=== PATIENT | female | born 1985 | race Caucasian/White ===

== ENCOUNTER → 2022-06-06 08:40 | Outpatient (CLI) | payer BC, SELFPAY ==
--- NOTE | ~2022-06-06 | CT_ITS ---
Non-contrast Head CT History: Lightheadedness Technique: Axial non-contrast imaging of the brain was performed. Dose reduction technique was used on this scan by utilizing automated exposure control and iterative reconstruction technique. The dose -length product (DLP) was 599.57 mGy-cm. Findings: There is no evidence of intracranial hemorrhage, mass lesion, or acute infarct. Brain par enchyma appears normal. The ventricles and subarachnoid spaces are normal in size. The calvarium ap pears normal. The visualized paranasal sinuses and mastoid air cells are clear. Impression: No significant abnormality seen. Reviewed, dictated and finalized at location . MITH APPRENTICE Impression: No significant abnormality seen.
== END ==
DX: R42 Dizziness and giddiness (principal); R51.9 Headache, unspecified; S09.90XA Unspecified injury of head, initial encounter; R55 Syncope and collapse
CPT/HCPCS: 70450

== ENCOUNTER 2023-08-23 18:57 | Emergency (ER) | payer BC, SELFPAY ==
--- NOTE | ~2023-08-23 | XR_ITS ---
EXAMINATION: XR finger 2nd RT min 2V DATE: 08/23/2023 19:12 INDICATION: Right hand second digit injury. TECHNIQUE: 3 views of right hand second digit were obtained. COMPARISON: None. FINDINGS: Bone alignment is normal. There is a chip fracture of tuft of second distal phalanx. Joint spaces are normal. IMPRESSION: 1. Chip fracture of tuft of second distal phalanx. Reviewed, dictated and finalized at location E.
--- NOTE | 2023-08-23 19:06 | ED.UPPEXIN ---
HPI - Extremity Injury (Upper) General Chief Complaint: Extremity Injury, Upper Stated Complaint: Injured Finger Time Seen by Provider: 08/23/23 19:04 Source: patient, RN notes reviewed and old records reviewed Mode of arrival: ambulatory Limitations: no limitations History of Present Illness HPI narrative: 38-year-old female presents to the [facility] after closing her 2nd finger right hand in a car door. MD complaint: injury to: right and finger (2nd) Treatments prior to arrival: other (Pressure dressing) Related Data Allergies Allergy/AdvReac Type Severity Reaction Status Date / Time No Known Allergies Allergy Verified 08/23/23 19:04 Review of Systems Review of Systems: All systems reviewed & are unremarkable except as noted in HPI and below Constitutional: Constitutional: Reports no additional constitutional complaints Eyes: Eyes: Reports no additional eye complaints ENT: Reports system reviewed and no additional complaints, except as documented Cardiovascular: Cardiovascular: Reports no additional cardiovascular complaints, Denies chest pain and Denies dyspnea Respiratory: Respiratory: Reports no additional respiratory complaints, Denies chest congestion, Denies cough and Denies dyspnea Gastrointestinal: Gastrointestinal: Reports no additional gastrointestinal complaints, Denies abdominal pain, Denies nausea and Denies vomiting Musculoskeletal: Musculoskeletal: Reports as per HPI Integumentary/Breasts: Skin/Breast: Reports system reviewed and no additional complaints, except as docu Neurologic: Reports system reviewed and no additional complaints, except as documented Psychiatric: Psychiatric: Reports no additional psychiatric complaints Allergic/Immunologic: Allergic/Immunologic: Reports no additional allergic/immunologic complaints PMFSH Past Medical History Medical History ASCUS of cervix with negative high risk HPV Surgical History Surgical History History of colposcopy late teens when it was done - all normal per pt -nm Hx of tonsillectomy Family History Family History Mother Hypertension Breast cancer Grandparent Diabetes mellitus Lung cancer Carcinoma of colon Grandparent Breast cancer, Onset Age: 50 Social History Social History Smoking status: Never smoker Alcohol intake: current Alcohol use details: socially Substance use: never Substance use type: does not use Living arrangements: with family Additional occupation/education comments: RN Gender identity (if verbalized by the patient): Female Sexual Orientation (if Verbalized by the Patient): Straight or Heterosexual Comments At the time of my signature, I reviewed and agree with the nursing past medical, surgical, social, and family history. There is no relevant family history pertinent to the patient complaint. Exam Const: General: cooperative, healthy appearing, comfortable, no acute distress, well developed, alert and well nourished Nutritional Appearance: well nourished Orientation/consciousness: patient oriented x3 Limitations: no limitations HENMT: Head: normal to inspection Ears: hearing grossly normal bilaterally and external ears normal Face/Nose/Sinus: Normal external nose present, Normal nares present, Normal nasal mucous membranes and turbinates present, normal facial exam and face symmetric Face and sinus: normal facial exam and face symmetric Eyes: General: appearance normal, both eyes and all related structures Alignment and Position: alignment normal Periorbital: periorbital findings normal Pupils: Equal, round and reactive pupils present EOM: EOMs intact bilaterally Neck: Neck: normal visual inspection, full ROM, no lymphadenopathy and no meningeal signs Chest: Chest
[2023-08-23] MEDS: TETANUS,DIPHTHERIA,AC PERTUSSIS ADULT (0.5 ML) BOOSTRIX IM (19:23)
[2023-08-23 19:35] VITALS: BP 135/71; PULSE 69; RESP 16; TEMP 36.8; O2SAT 100
== END 2023-08-23 19:58 | disposition home or self-care (01) ==
PROVIDERS: Emergency Provider Nurse Practitioner; PCP Nurse Practitioner Family
DX: S62.630B Displaced fracture of distal phalanx of right index finger, initial encounter for open fracture (principal); V48.3XXA Unspecified car occupant injured in noncollision transport accident in nontraffic accident, initial encounter; Z23 Encounter for immunization
CPT/HCPCS: 12001; 29130; 73140; 90471; 90715; 99214; G0463

== ENCOUNTER 2024-03-13 14:45 | Outpatient (CLI) | payer BC, SELFPAY ==
--- NOTE | ~2024-03-13 | MR_ITS ---
MRI of the cervical spine Clinical History: Cervicalgia Technique: Axial T2-weighted and gradient images, and sagittal T1-weighted, T2-weighted, and STIR laura ges were acquired. Findings: There is reversal normal cervical lordosis. No fracture or subluxation seen. No bone marrow signal abnormality seen. At C2-C3, there is no disc bulge or herniation. No spinal canal stenosis, cord compression, or neural foraminal narrowing. At C3-C4, there is no disc bulge or herniation. No spinal canal stenosis, cord compression, or neural foraminal narrowing. At C4-C5, there is no disc bulge or herniation. No spinal canal stenosis, cord compression, or defini te neural foraminal narrowing. At C5-C6, there is minimal disc osteophyte complex. Possible minimal canal stenosis without yodit cor d compression. No neural foraminal narrowing evident. At C6-C7, there is right foraminal disc extrusion with significant narrowing of the right neural fora men. Left neural foramen is preserved. There is moderate canal stenosis and flattening of the ventral cord at this level partially related to the disc extrusion versus extensive right paracentral region . No abnormal signal seen in the spinal cord. Paravertebral soft tissues are otherwise unremarkable. Impression: Right paracentral to right foraminal disc extrusion at C6-C7, with marked narrowing of the right neur al foramen, and is additional canal stenosis and ventral cord compression of the right side related t o the extrusion. Mild degenerative spondylosis at C5-C6, as above. Reviewed, dictated and finalized at [facility]. TER CUTTER Impression: Right paracentral to right foraminal disc extrusion at C6-C7, with marked narro wing of the right neural foramen, and is additional canal stenosis and ventral cord compression of the right side related to the extrusion. Mild degenerative spondylosis at C5-C6, as above.
== END 2024-03-13 14:46 | disposition home or self-care (01) ==
PROVIDERS: PCP Nurse Practitioner Family; Visit Provider Nurse Practitioner Family
DX: M50.223 Other cervical disc displacement at C6-C7 level (principal); M47.812 Spondylosis without myelopathy or radiculopathy, cervical region
CPT/HCPCS: 72141